=== PATIENT | female | born 1995 | race Caucasian/White ===

== ENCOUNTER 2016-05-09 06:37 | Emergency (ER) | payer BC, OTHER ==
[2016-05-09] MEDS ORDERED: PRENTAB55 PO (07:02)
== END 2016-05-09 07:00 | disposition left against medical advice (07) ==
LOC: M ED 06:37
DX: R10.9 Unspecified abdominal pain (principal); Z53.20 Procedure and treatment not carried out because of patient's decision for unspecified reasons

== ENCOUNTER 2016-05-09 06:48 | Outpatient (CLI) | payer BC, OTHER ==
[~2016-05-09] VITALS: Ht 162.6 cm; Wt 55.0 kg
[2016-05-09] MEDS ORDERED: PRENTAB55 PO (07:02)
[2016-05-09 07:05] VITALS: BP 112/64
--- NOTE | 2016-05-09 09:15 | REP ---
Clinical: Abdominal pain. Technique: Sewell scale ultrasound using curved array transducer. Findings: The liver and pancreas are normal in contour, size, and echogenicity without focal hepatic or pancreatic lesions identified. The gallbladder is normal without gallstones, wall thickening or pericholecystic fluid. No biliary ductal dilatation is appreciated, and the common bile duct measures 2.1 mm diameter. The right kidney is normal in reniform shape without hydronephrosis and measures 11.9 x 6.5 x 4.5 cm. Incidental note is made of a subcentimeter septated mid pole cyst. No ascites. Visualized portions of the abdominal aorta normal. Impression: Essentially normal limited abdominal ultrasound. Benign appearing subcentimeter septated right renal cyst. Live fetus (F H R =139 beats per minute). Signed by Delfin Underwood MD 05/09/2016 09:07 A
[2016-05-09] MEDS ORDERED: ACETAMINOPHEN 500 MG TAB PO PRN (09:45)
== END 2016-05-09 09:40 | disposition home or self-care (01) ==
LOC: M LDO 06:48
PROVIDERS: ATTEND Obstetrics & Gynecology
DX: O99.89 Other specified diseases and conditions complicating pregnancy, childbirth and the puerperium (principal); R10.12 Left upper quadrant pain; R11.0 Nausea; Z3A.31 31 weeks gestation of pregnancy

== ENCOUNTER → 2016-05-29 | Outpatient (CLI) | payer BC, OTHER ==
[~2016-05-29] MED LIST: PRENTAB55 PO
--- NOTE | 2016-05-30 04:36 | REP ---
Clinical: Growth discrepancy . Comparison: 03/05/2016 . Findings: Examination demonstrates a single live intrauterine in breech presentation. motion is identified by technologist. Placenta is noted posteriorly and grade grade II without evidence for placenta previa or abruption. Amniotic fluid volume is normal. Cervix measures 4.0 cm in length and appears closed. No evidence for nuchal cord. Gestational age by LMP 34 weeks 1 day with MONICA 07/09/2016 . Gestational age by current measurements 33 weeks 4 days with MONICA 07/13/2016 . FHR equals 150 beats per minute. BPD 8.2 cm 33 weeks 0 days HC 31.5 cm 35 weeks 3 days AC 29.7 cm 33 weeks 5 day FL 6.4 cm 33 weeks 1 day HL 5.6 cm 32 weeks 4 days HC/AC ratio 1.06 Estimated weight 2245 grams ( 48th percentile). Amniotic fluid index equals 11.3 cm. Umbilical cord SD ratio equals 2.41. Limited anatomical assessment again demonstrates bilateral hydronephrosis and proximal hydroureter. Proximal renal pelvises measured 10.9 mm on the right and 6.1 mm left. Impression: Single live intrauterine in cephalic presentation demonstrating appropriate interval growth. Continued evidence for mild bilateral hydronephrosis may warrant evaluation. Signed by Delfin Underwood MD 05/30/2016 04:27 A
== END ==
LOC: M RAD 16:51
PROVIDERS: ATTEND Specialist
DX: O36.5932 Maternal care for other known or suspected poor fetal growth, third trimester, fetus 2 (principal)

== ENCOUNTER → 2016-06-11 | Outpatient (REF) | payer BC, OTHER | LOC: M LAB REF 16:49 | PROVIDERS: ATTEND Advanced Practice Midwife | DX: Z34.83 Encounter for supervision of other normal pregnancy, third trimester (principal) ==

== ENCOUNTER 2016-06-27 23:09 | Outpatient (CLI) | payer BC, OTHER ==
[~2016-06-27] VITALS: Ht 162.6 cm; Wt 58.0 kg
[2016-06-27 23:17] VITALS: BP 121/79
== END 2016-06-28 00:25 | disposition home or self-care (01) ==
LOC: M LDO 23:09
PROVIDERS: ATTEND Specialist
DX: O47.1 False labor at or after 37 completed weeks of gestation (principal); Z3A.38 38 weeks gestation of pregnancy

== ENCOUNTER 2016-06-30 21:17 | Outpatient (CLI) | payer BC, OTHER | END 2016-06-30 22:25 | disposition home or self-care (01) | LOC: M LDO 21:17 | PROVIDERS: ATTEND Obstetrics & Gynecology | DX: O47.1 False labor at or after 37 completed weeks of gestation (principal); Z3A.38 38 weeks gestation of pregnancy ==

== ENCOUNTER 2016-07-18 09:56 | Inpatient (IN) | payer BC, OTHER ==
[~2016-07-18] VITALS: Ht 162.6 cm; Wt 60.0 kg
[2016-07-18] MEDS ORDERED: LR 1,000 ML IV SCH (10:01)
[2016-07-18] MEDS ORDERED: LACTATED RINGER'S 1000 ML IV STA (10:01)
[2016-07-18] MEDS ORDERED: OXYTOCIN DRIP 30 UNITS in APPROPRIATE DILUENT 1 EA IV SCH (10:15)
[2016-07-18 10:32] VITALS: BP 132/78
[2016-07-18 10:51] VITALS: BP 125/81
[2016-07-18 11:13] LABS: MEAN CORPUSCULAR HEMOGLOBIN 25.3 pg (27.0-33.0); MEAN CORPUSCULAR HGB CONC 32.4 g/dl (32.0-36.5); RED CELL DISTRIBUTION WIDTH 14.8 % (11.5-14.5); WHITE BLOOD COUNT 8.7 K/mm3 (4.0-10.0)
[2016-07-18 11:27] VITALS: BP 139/77
[2016-07-18 11:57] VITALS: BP 131/78
[2016-07-18 12:13] VITALS: BP 136/80
[2016-07-18] MEDS ORDERED: BUTORPHANOL 2 MG/ML INJ (J0595) IV ONE (16:30)
[2016-07-18] MEDS ORDERED: PROMETHAZINE INJ 25 MG/ML VIAL (J2550) IV ONE (16:30)
[2016-07-18 21:08] VITALS: BP 121/63
[2016-07-18] MEDS: LR 1,000 ML IV SCH (21:09)
[2016-07-18] MEDS ORDERED: DIBUCAINE 1% OINTMENT 30GM TOP PRN (21:15)
[2016-07-18] MEDS ORDERED: MEASLES,MUMPS,RUBELLA VACCINE INJ (MMR-II) (90707) SC SCH (21:15)
[2016-07-18] MEDS ORDERED: RHOGAM 300 MCG (1500 IU) INJ (J2790) IM SCH (21:15)
[2016-07-18] MEDS ORDERED: ONDANSETRON 4MG/2ML VIAL (J2405) IV PRN (21:15)
[2016-07-18] MEDS ORDERED: DOCUSATE SODIUM 100 MG CAP PO PRN (21:15)
[2016-07-18] MEDS ORDERED: PROMETHAZINE 25 MG TAB PO PRN (21:15)
[2016-07-19] MEDS: ACETAMINOPHEN 500 MG TAB PO PRN ×2 (00:16→11:32)
[2016-07-19] MEDS: LR 1,000 ML IV SCH ×3 (05:09→21:09)
[2016-07-19] MEDS: IBUPROFEN 800 MG TAB PO PRN ×2 (06:14→20:35)
[2016-07-19 06:18] VITALS: BP 120/73
[2016-07-19] MEDS: PRENATAL VITAMIN TAB PO SCH (09:43)
[2016-07-19 18:00] VITALS: BP 126/80
[2016-07-19 21:00] VITALS: BP 118/67
[2016-07-20] MEDS: LR 1,000 ML IV SCH (01:15)
[2016-07-20 05:26] VITALS: BP 123/74
[2016-07-20] MEDS: IBUPROFEN 800 MG TAB PO PRN (08:22)
[2016-07-20] MEDS: PRENATAL VITAMIN TAB PO SCH (08:22)
[2016-07-20] MEDS ORDERED: ACET50TA PO (09:54)
[2016-07-20] MEDS ORDERED: IBUP-1114 PO (09:55)
== END 2016-07-20 11:40 | disposition home or self-care (01) | DRG 560 ==
LOC: M LDI 09:56 → M OBS 21:00
PROVIDERS: ADMIT Obstetrics & Gynecology; ATTEND Obstetrics & Gynecology
PROC: 10E0XZZ Delivery of Products of Conception, External Approach (ICD-10-PCS; principal; 2016-07-18)
PROC: 3E033VJ Introduction of Other Hormone into Peripheral Vein, Percutaneous Approach (ICD-10-PCS; 2016-07-18)
DX: O48.0 Post-term pregnancy (principal); Z37.0 Single live birth; Z3A.41 41 weeks gestation of pregnancy